=== PATIENT | female | born 2000 | race Caucasian/White ===

== ENCOUNTER 2020-07-25 20:10 | Emergency (ER) | payer OTHER, BC, SELFPAY ==
--- NOTE | ~2020-07-25 | XR_ITS ---
EXAMINATION: XR lumbar spine 2-3V DATE: 07/25/2020 20:46 INDICATION: Low back pain TECHNIQUE: Anteroposterior and lateral views of the lumbar spine, and cone-down lateral view of the l umbosacral junction were obtained. COMPARISON: None. FINDINGS: There is no fracture, dislocation, or subluxation. The vertebral body heights, alignment, a nd intervertebral disc spaces are normal. The paravertebral soft tissues are unremarkable. IMPRESSION: 1. No acute osseous abnormality. Reviewed, dictated and finalized at location A. UNICATION AND OUTREACH MANAGER
[2020-07-25 20:18] VITALS: BP 151/86; PULSE 101; RESP 18; TEMP 36.9; O2SAT 100
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
[2020-07-25] MEDS: IBUPROFEN 600 MG TABLET PO (20:56)
[2020-07-25 21:34] VITALS: BP 134/77; PULSE 90; RESP 18; O2SAT 99
== END 2020-07-25 21:35 | disposition home or self-care (01) ==
PROVIDERS: Emergency Provider Emergency Medicine
DX: S39.012A Strain of muscle, fascia and tendon of lower back, initial encounter (principal); V43.52XA Car driver injured in collision with other type car in traffic accident, initial encounter
CPT/HCPCS: 72100; 99283; A9270